=== PATIENT | female | born 1955 | race Caucasian/White ===

== ENCOUNTER → 2018-08-13 | Outpatient (CLI) | payer BC ==
--- NOTE | 2018-08-14 08:37 | RAD ---
Carotid ultrasound, 08/13/2018: HISTORY: TIA Duplex evaluation of the carotid arteries and neck was performed including grayscale, color-flow and spectral Doppler analysis. There is mild intimal thickening and smooth plaquing at the carotid bifurcations. The peak systolic velocity in the right internal carotid artery is 84 cm/s with an end-diastolic velocity of 32 cm/s and an internal carotid to common carotid artery ratio of 0.9. On the left the peak systolic velocity in the internal carotid artery is 101 cm per sec with an end-diastolic velocity of 44 cm/s and an internal carotid to common carotid artery ratio of 0.9. The Doppler findings do not suggest significant stenosis. Antegrade flow is present in both vertebral arteries in the neck. IMPRESSION: Mild intimal thickening and smooth plaquing at the carotid bifurcations with underlying luminal narrowing in the 0-50 percent diameter range bilaterally. Note: Stenosis calculations for CT, MRA and conventional angiography are based upon determination of the distal ICA diameter in accordance with the NASCET methodology. Stenosis calculations for Doppler studies are derived from validated velocity criteria which are known to correlate with NASCET methodology of determining stenosis. Electronically signed by: Doroteo Moreno MD (08/14/2018 8:34 AM) [facility]
== END | disposition home or self-care (01) ==
LOC: US 13:46
PROVIDERS: ATTEND Psychiatry & Neurology Neurology
DX: I65.23 Occlusion and stenosis of bilateral carotid arteries (principal)
CPT/HCPCS: 93880

== ENCOUNTER → 2018-08-24 | Outpatient (CLI) | payer BC ==
--- NOTE | 2018-08-24 18:05 | CARD ---
MR#: [id number] Date of Study: 08/24/2018 Ordering Physician: HECTOR URRUTIA, Referring Physician: HECTOR URRUTIA, Tech: Christina Ferrer APPROVED REPORT EXAM: Two-dimensional and M-mode echocardiogram with Doppler and color Doppler. Other Information Quality : AverageHR: 60bpm INDICATION CVA/TIA Echo Enhancing Agent Indication: Rule Out Septal Defect Agent/Amount Used: Agitated Saline 10mL 2D DIMENSIONS Left Atrium(2D)3.6 (1.6-4.0cm)IVSd0.8 (0.7-1.1cm) Aortic Root(2D)2.8 (2.0-3.7cm)LVDd3.3 (3.9-5.9cm) LVOT Diameter2.1 (1.8-2.4cm)PWd0.9 (0.7-1.1cm) LVDs2.1 (2.5-4.0cm)FS (%) 34.4 % SV27.6 mlLVEF(%)64.8 (>50%) Aortic Valve AoV Peak Napoleon.112.9cm/sAoV VTI25.1cm AO Peak GR.5.1mmHgLVOT Peak Napoleon.90.0cm/s AO Mean GR.3mmHgAVA (VMAX)2.65cm2 Mitral Valve MV E Hvbnrbto182.9cm/sMV E Peak Gr.114mmHg MV DECEL [id number] A Hsaiocet32.1cm/s E/A Ratio1.1 Pulmonary Valve PV Peak Dvzxjbaq36.7cm/s Tricuspid Valve TR P. Xtrfqbfk852xc/sRAP USMQXXRX4bdEa TR Peak Gr.49rqWdIFTS16nzSs LEFT VENTRICLE The left ventricle is normal size. There is normal left ventricular wall thickness. The left ventricu lar systolic function is normal and the ejection fraction is within normal range. The Ejection Fracti on is >55%. There is normal LV segmental wall motion. The left ventricular diastolic function and lurdes ling is normal for age. RIGHT VENTRICLE The right ventricle is normal size. There is normal right ventricular wall thickness. The right ventr icular systolic function is normal. ATRIA The left atrium size is normal. The right atrium size is normal. The interatrial septum is intact wit h no evidence for an atrial septal defect or patent foramen ovale as noted on 2-D or Doppler imaging. AORTIC VALVE The aortic valve is thickened but opens well. Doppler and Color Flow revealed no significant aortic r egurgitation. There is no significant aortic valvular stenosis. MITRAL VALVE Mild anterior leaflet prolapse is noted. There is no evidence of mitral valve prolapse. There is no m itral valve stenosis. Doppler and Color-flow revealed trace to mild mitral regurgitation. TRICUSPID VALVE The tricuspid valve leaflets are thickened , but open well. Doppler and Color Flow revealed mild tric uspid regurgitation with an estimated PAP of 29 mmHg. There is no tricuspid valve stenosis. PULMONIC VALVE Doppler and Color Flow revealed trace to mild pulmonic valvular regurgitation. There is no pulmonic v alvular stenosis. GREAT VESSELS The aortic root is normal in size. The IVC is normal in size and collapses >50% with inspiration. PERICARDIAL EFFUSION There is a moderate left sided pleural effusion. There is no evidence of significant pericardial effu deloris. Critical Notification Critical Value: No <Conclusion> The left ventricular systolic function is normal and the ejection fraction is within normal range. Th e Ejection Fraction is >55%. There is normal LV segmental wall motion. There is al left pleural effusion, moderate in size. Signed by : Brent Mckenzie, Electronically Approved : 08/24/2018 18:03:47
== END | disposition home or self-care (01) ==
LOC: ECHO 12:30
PROVIDERS: ATTEND Psychiatry & Neurology Neurology
DX: G45.9 Transient cerebral ischemic attack, unspecified (principal); I36.1 Nonrheumatic tricuspid (valve) insufficiency; J90 Pleural effusion, not elsewhere classified
CPT/HCPCS: 93306

== ENCOUNTER → 2018-08-27 | Outpatient (CLI) | payer BC ==
--- NOTE | 2018-08-27 14:46 | RAD ---
EXAM: Chest, 2 views. HISTORY: Pleural effusion. COMPARISON: None. FINDINGS: 2 views the chest are obtained. There is no infiltrate, pleural effusion or pneumothorax. The heart is normal in size. IMPRESSION: No acute pulmonary finding. Electronically signed by: Treva Wing MD (08/27/2018 2:43 PM) [place] [id number]
== END | disposition home or self-care (01) ==
LOC: RAD 14:13
PROVIDERS: ATTEND Psychiatry & Neurology Neurology
DX: J90 Pleural effusion, not elsewhere classified (principal)
CPT/HCPCS: 36415; 71046; 85651

== ENCOUNTER → 2018-09-07 | Outpatient (CLI) | payer BC ==
--- NOTE | 2018-09-07 13:56 | EEG ---
DATE OF SERVICE: 09/07/2018 EEG NUMBER: [id number] OBJECTIVE: This is a 63-year-old female patient with history of seizure or seizure-like episodes. EEG was requested to evaluate seizure activity. METHODS: Twenty electrodes were applied according to the international 10-20 electrode placement system. EKG monitoring, hyperventilation, intermittent photic stimulation, monopolar and bipolar montages are routinely utilized. The record was obtained on a digital system with video monitoring. FINDINGS: 1. Background: The patient was recorded in the awake and drowsy states. No actual sleep state was recorded. The overall background amplitude is 10-30 microvolts. A posterior dominant rhythm of 8 Hz is observed. 2. Abnormalities: No specific epileptiform discharge or electrographic seizure is seen. No focal or diffuse slowing. 3. Activation: Hyperventilation was performed with good efforts and normal response. Intermittent photic stimulation was performed with photic driving. No specific epileptiform discharge or electrographic seizure induced by hyperventilation or intermittent photic stimulation. IMPRESSION: This EEG is a normal study for the awake and drowsy states. No actual sleep state was recorded. No focal, lateralizing, specific epileptiform discharge or electrographic seizure is seen. The patient stated that she had a seizure-like episode during the EEG recording; however, no epileptiform discharge or electrographic seizure is seen. HECTOR URRUTIA MD DR: Yessica JOB#: [id number] / [id number] MARY
== END | disposition home or self-care (01) ==
LOC: RT 09:09
PROVIDERS: ATTEND Psychiatry & Neurology Neurology
DX: R56.9 Unspecified convulsions (principal)
CPT/HCPCS: 95816

== ENCOUNTER → 2018-09-10 | Outpatient (CLI) | payer BC ==
[~2018-09-10] MED LIST: REGADENOSON 0.4 MG/5 ML DISP.SYRIN. IV ONE
--- NOTE | 2018-09-10 12:05 | RAD ---
MR#: [id number] Date of Study: 09/10/2018 Ordering Physician: IZA QUIÑONEZ, Referring Physician: AURY ALEXANDER Tech: SUZANNE Valdez, ARRMarlo (R) (N) APPROVED REPORT Test Type: Pharmacological Stress Nurse/Tech: Sandy Shell R.N. Test Indications: dizziness Cardiac History: family hx Medications: see ehr Medical History: see ehr Resting ECG: sr Resting Heart Rate: 64 bpm Resting Blood Pressure: 138/72mmHg Pretest Chest Pain: No chest pain Nurse/Tech Notes lungs cta, heart tones regular, good radial pulse Consent: The procedure was explained to the patient in lay terms. Informed consent was witnessed. Phani eout was entered into [employer]. History and Stress Test performed by EDUARDO Perdomo [employer]. Details Pharmacologic stress testing was performed using 0.4mg per 5ml of regadenoson given intravenously ove r 7-10 seconds. Stress Symptoms No chest pain or symptoms.DyspneaDizziness POST EXERCISE Reason for Termination: Infusion complete Target HR: No Max HR: 107 bpm Max Blood Pressure: 151/80mmHg Chest Pain: No. Arrhythmia: No. INTERPRETATION Stress EKG Conclusion: The resting EKG showed a normal sinus rhythm with slight nonspecific ST segmen t changes. The stress EKG showed no significant changes from baseline. No EKG evidence of stress-induced ischemia. Imaging Protocol IMAGE PROTOCOL: Rest Tc-99m/stress Tc-99m 1 day Rest: Stress: Viability: Radiopharm.Tc99m WpovtkehfYf72h Sestamibi Dose11.3mCi 32.9mCi Img Date 09/10/2018 09/10/2018 Inj-Img Qiii15cxz. 60min. Rest Admin Site:IV - Right AntecubitalAdministrator:EDUARDO Perdomo Stress Admin Site: IV - Right AntecubitalAdministrator: EDUARDO Perdomo STRESS DATA End Diast. Vol.47.0mlLVEDV index BSA31.0ml End Syst. Vol.8.0mlLVESV index BSA5.0ml Myocardial Mass93.0gEject. Qywummmw79.0% Stress Scores Regional WT0.00Summed WT0.00 Regional WM0.00Summed WM0.00 LV Perfusion The stress scans showed no significant defects. The rest scans showed no significant defects. Nuclear imaging shows no reversible ischemia or infarct. Wall Motion Normal left ventricular systolic function with no wall motion abnormalities and an ejection fraction of greater than 70%. LV Perf. Quant 17 Seg. SSS0.00 17 Seg. SRS0.00 17 Seg. SDS0.00 Stress Defect Extent (% LAD)0.00Rest Defect Extent (% LAD)0.00Rev. Defect Extent (% LAD)0.00 Stress Defect Extent (% LCX) 0.00Rest Defect Extent (% LCX)0.00Rev. Defect Extent (% LCX)0.00 Stress Defect Extent (% RCA)0.00Rest Defect Extent (% RCA)0.00Rev. Defect Extent (% RCA)0.00 Stress Defect Extent (% KAYLA)0.00Rest Defect Extent (% KAYLA)0.00Rev. Defect Extent (% KAYLA)0.00 Conclusion 1. No EKG evidence of stressed induced ischemia. 2. Nuclear imaging shows no reversible ischemia or infarct. 3. Normal left ventricular systolic function with ejection fraction of greater than 70%. 4. Low risk Lexiscan nuclear stress test. Signed by : Luis Stanford MD Electronically Approved : 09/10/2018 12:05:06
== END | disposition home or self-care (01) ==
LOC: NM 07:29
PROVIDERS: ATTEND Internal Medicine Cardiovascular Disease
DX: R42 Dizziness and giddiness (principal); Z79.01 Long term (current) use of anticoagulants; Z82.49 Family history of ischemic heart disease and other diseases of the circulatory system
CPT/HCPCS: 78452; 93017; 96374; A9500; J2785

== ENCOUNTER 2021-03-25 13:47 | Emergency (ER) | payer BC ==
[~2021-03-25] VITALS: Ht 160 cm; Wt 52.0 kg
[2021-03-25 13:57] VITALS: BP 166/123
[2021-03-25] MEDS ORDERED: CEPHALEXIN 250 MG CAPSULE. PO ONE (14:45)
[2021-03-25] MEDS ORDERED: BACITRACIN TOPICAL OINT PACKET. TP ONE (14:45)
--- NOTE | 2021-03-25 15:21 | PHYS DOC ---
Past Medical History Past Surgical History: No Surgical History (MAGEN CHAPPELL APRN) General Adult EDM: Chief Complaint: ANIMAL BITE HPI: HPI: Patient is a 66 year old female who presents to the emergency department chief complaint of being bit by a raccoon to the left hand last night at approximately 2200. Patient reports the raccoon has been living under her porch for several months and has BV raccoons that she is caring for her, patient reports she went out last night to feed her cats and placed the bowl near where the raccoon mother was not noticing her, states the raccoon bit her once on the hand and ran off. Patient reports she immediately cleansed her hand with chlorhexidine wash and water. Reports her last tetanus immunization was less than 1 year ago. States it does not hurt but she is worried she may have contracted rabies. Patient denies other physical complaints physical concerns. (MAGEN CHAPPELL APRN) Review of Systems: Review of Systems: 14 body systems of review of systems have been reviewed. See HPI for pertinent positives and negative responses, otherwise all other systems are negative, nonpertinent or noncontributory. Constitutional: Negative except as outlined in HPI above. Skin: Negative except as outlined in HPI above. Eyes: Negative except as outlined in HPI above. HENT: Negative except as outlined in HPI above. Respiratory: Negative except as outlined in HPI above. Cardiovascular: Negative except as outlined in HPI above. GI: Negative except as outlined in HPI above. : Negative except as outlined in HPI above. Musculoskeletal: Negative except as outlined in HPI above. Integument: Negative except as outlined in HPI above. Neurologic: Negative except as outlined in HPI above. Endocrine: Negative except as outlined in HPI above. Lymphatic: Negative except as outlined in HPI above. Psychiatric: Negative except as outlined in HPI above. (MAGEN CHAPPELL APRN) Heart Score: C/O Chest Pain: No Risk Factors: Risk Factors: DM, Current or recent (<one month) smoker, HTN, HLP, family history of CAD, obesity. Risk Scores: Score 0 - 3: 2.5% MACE over next 6 weeks - Discharge Home Score 4 - 6: 20.3% MACE over next 6 weeks - Admit for Clinical Observation Score 7 - 10: 72.7% MACE over next 6 weeks - Early Invasive Strategies (MAGEN CHAPPELL APRN) Current Medications: Current Medications Medications (Trade) Dose Ordered Sig/Dafne Start Time Stop Time Status Last Admin Dose Admin Bacitracin (Bacitracin Zinc Oint Pkt) 1 pkt 1X ONCE 03/25/21 14:45 03/25/21 14:46 DC Cephalexin HCl (Keflex) 500 mg 1X ONCE 03/25/21 14:45 03/25/21 14:46 DC (MAGEN CHAPPELL APRN) Allergies: Allergies: Allergies Coded Allergies Type Severity Reaction Last Updated Verified No Known Drug Allergies 03/25/21 No (MAGEN CHAPPELL APRN) Physical Exam: PE: Constitutional: Well developed, well nourished, no acute distress, non-toxic appearance. 66-year-old female in no apparent distress. HENT: Normocephalic, atraumatic. Eyes: Conjunctiva normal, no discharge. Neck: Normal range of motion, no stridor. Cardiovascular: No cyanosis appreciated, distal cap refill less than 2 seconds. Lungs & Thorax: Patient is in no respiratory distress, no audible adventitious lung sounds appreciated. Abdomen: Nontender, no abnormalities noted. Skin: Warm, dry, no erythema, no rash. See extremity note for focused skin examination. Back: No tenderness, no deformities. Extremities: No tenderness, no cyanosis, no clubbing, ROM intact, no edema. 3 puncture wounds around pointer finger MIP joint dorsal aspect skin surface of hand consistent with teeth bite morrison. No erythema, no drainage, no bleeding, no infectious process appreciated. Full range of motion of all digits of the hand. No pain to palpation over bite calvin area. Neurologic: Alert and oriented X 3, normal motor function, normal sensory function, no focal deficits noted. Psychologic: Affect normal, judgement normal, mood normal. (MAGEN CHAPPELL APRN) Current Patient Data: Vital Signs: Vital Signs Date Time Temp Pulse Resp B/P (MAP) Pulse Ox O2 Delivery O2 Flow Rate FiO2 03/25/21 13:57 98.0 83 18 166/123 (137) 100 Room Air 98.0 (MAGEN CHAPPELL APRN) EKG: EKG: [] (MAGEN CHAPPELL APRN) Radiology/Procedures: Radiology/Procedures: [] (MAGEN CHAPPELL APRN) Course & Med Decision Making: Course & Med Decision Making Pertinent Labs and Imaging studies reviewed. (See chart for details) 66-year-old female, vital signs reviewed, presents to the emergency department concerning raccoon bite to left hand. Physical examination and explanation of events consistent with animal bite to hand. Discussed with patient rabies vac cination series, starting on oral antibiotics to cover for infection prophylaxis, x-ray of hand to rule out foreign bodies within bite puncture wounds, patient is amendable to ED planning. Shortly after examining patient, ED nursing staff reports patient eloped from ER. Patient has left prior to receiving antibiotic therapy or rabies vaccination series. (MAGEN CHAPPELL APRN) Dragon Disclaimer: Dragon Disclaimer: This electronic medical record was generated, in whole or in part, using a voice recognition dictation system. (MAGEN CHAPPELL APRN) Departure Departure Impression: Primary Impression: Eloped from emergency department Disposition: 07 LEFT AWOL/ELOPED Condition: STABLE Referrals: MAGEN RIOS MD (PCP) Attending Signature I have participated in the care of this patient and I have reviewed and agree with all pertinent clinical information above including history, exam, and recommendations. (GERA WHYTE DO) MAGEN CHAPPELL APRN Mar 25, 2021 15:20 GERA WHYTE DO Mar 30, 2021 06:03
== END 2021-03-25 14:33 | disposition left against medical advice (07) ==
LOC: ER 13:47
DX: S61.231A Puncture wound without foreign body of left index finger without damage to nail, initial encounter (principal); W55.51XA Bitten by raccoon, initial encounter; Y93.89 Activity, other specified; Y92.89 Other specified places as the place of occurrence of the external cause; Y99.8 Other external cause status
CPT/HCPCS: 99281